=== PATIENT | male | born 1960 ===

== ENCOUNTER 2021-07-24 13:33 | Outpatient (CLI) | payer BC, SELFPAY ==
[2021-07-24 14:10] LABS: INR 2.8; Prothrombin Time 28.5 Seconds (11.1-14.7)
[2021-07-24 14:11] LABS: Partial Thromboplastin Time 39.5 SECONDS (22.3-36.8)
== END 2021-07-24 13:34 | disposition home or self-care (01) ==
LOC: ANHLAB 13:38
PROVIDERS: Visit Provider Family Medicine
DX: Z51.81 Encounter for therapeutic drug level monitoring (principal); Z79.01 Long term (current) use of anticoagulants
CPT/HCPCS: 36415; 85610; 85730